=== PATIENT | female | born 1950 | race Two or more races ===

== ENCOUNTER 2016-11-24 11:11 | Emergency (ER) | payer OTHER ==
[2016-11-24 11:45] VITALS: RESP 18
--- NOTE | 2016-11-24 12:06 | CPEKG ---
Heart Rate: 89 RR Interval: 674 P-R Interval: 196 QRSD Interval: 66 QT Interval: 372 QTC Interval: 453 P Quincy: 60 QRS Quincy: 62 T Wave Quincy: 55 EKG Severity - BORDERLINE ECG - EKG Impression: SINUS RHYTHM EKG Impression: BORDERLINE R WAVE PROGRESSION, ANTERIOR LEADS Electronically Signed By: Kumar Hernandes 24-Nov-2016 12:37:50
--- NOTE | 2016-11-24 12:22 | DX ---
PA and Lateral Chest November 24, 2016 Indication: Cough and congestion. Comparison: Two-view chest dated November 23, 2015. Findings: Minimal bibasilar reticular abnormality and peribronchial thickening is worse since one ye ar prior. No airspace consolidation, edema or effusion. Heart size is normal. Surgical clips in the r ight upper quadrant are unchanged. Impression: Mild airways disease. No pneumonia.
--- NOTE | 2016-11-24 12:34 | UCPHY ---
H & P Patient Type: Established Chief Complaint Nursing Narrative: Pt. states bilat lower extremitiy/ankle swelling had increased yesterday. Denies cp but states has had periods of SOB, cough-productive yellow/green intermittently x2 mo. c/o MELENDREZ and "hot feeling" Time Seen by Provider: 11/24/16 11:58 HPI/ROS: This patient presents with a chief complaint of ankle swelling which began yesterday and this morning she noticed bernie or orbital swelling which has since improved. She says the ankle swelling was much worse yesterday than it is today. This is not been a problem in the past. REVIEW OF SYSTEMS: Constitutional: No fever, no malaise Eyes: Some watering from the right eye otherwise negative ENT: Denies sore throat and congestion. Respiratory: Mild cough, mild shortness of breath Cardiac: No chest pain Gastrointestinal: Denies nausea, vomiting, diarrhea. Good appetite Genitourinary: Not addressed Musculoskeletal: Feeling somewhat achy, see above Skin: No rash Neurological: Headache Source: Patient, RN notes reviewed, Old records Exam Limitations: No limitations - Medical/Surgical History Hx Asthma: No Hx Chronic Respiratory Disease: No Hx Diabetes: No Hx Cardiac Disease: No Hx Renal Disease: No Hx Cirrhosis: No Hx Alcoholism: No Hx HIV/AIDS: No Hx Splenectomy or Spleen Trauma: No Other PMH: HTN. [id number] - Family History Significant Family History: No pertinent family hx - Social History Smoking Status: Former smoker - Physical Exam Exam: GENERAL: Well-appearing, well-nourished and in no acute distress. HEAD: Atraumatic, normocephalic. EYES: Pupils equal round and reactive to light, extraocular movements intact, sclera anicteric, there is some conjunctival injection ENT: nares patent, oropharynx clear without exudates. Moist mucous membranes. NECK: Normal range of motion, supple without lymphadenopathy or JVD. LUNGS: Breath sounds clear to auscultation bilaterally and equal. No wheezes rales or rhonchi. Breath sounds are somewhat distant HEART: Regular rate and rhythm without murmurs, rubs or gallops. ABDOMEN: Soft, nontender, No guarding, no rebound. No masses appreciated. EXTREMITIES: Normal range of motion, No clubbing or cyanosis. There is mild pitting edema in both lower extremities which is symmetric. Peripheral pulses are symmetric NEUROLOGICAL: Cranial nerves II through XII grossly intact. Normal speech, normal gait. PSYCH: Normal mood, normal affect. SKIN: Warm, dry, normal turgor, no visible rashes or lesions. Back: No CVA or other tenderness Constitutional: Initial Vital Signs Temperature (C) 37.0 C 11/24/16 11:36 Heart Rate 77 11/24/16 11:36 Respiratory Rate 18 11/24/16 11:36 Blood Pressure 142/72 H 11/24/16 11:36 O2 Sat (%) 80 L 11/24/16 11:36 O2 Delivery Mode Room Air Allergies/Adverse Reactions: Penicillins Allergy (Verified 11/24/16 11:35) Home Medications: Medication Instructions Recorded Premarin 10/29/14 Albuterol Hfa Anes Only 11/24/16 Diltiazem 11/24/16 Medical Decision Making - Diagnostics EKG Interpretation: An EKG shows a normal sinus rhythm with no suggestion of ischemia. Imaging: A chest x-ray shows some air trapping with flattened diaphragms which is slightly worse than shown a chest x-ray 1 year ago. There is no obvious pneumonia or cardiomegaly. ED Course/Re-evaluation: The patient was monitored throughout her stay in the department and her oxygen saturation remained slightly low at approximately 88%. She did not is experienced this symptomatic Consequently I felt comfortable sending her home for further outpatient evaluation by her PCP. Differential Diagnosis: The chest x-ray shows findings that are suggestive of COPD such as hyper expansion and flattened diaphragms. Additionally noted was that her hemoglobin and hematocrit have been persistently elevated since 2012 and this could be another finding related to COPD. I do not believe her extremity edema is related to congestive heart failure based on her laboratory studies an x-ray. In addition there is nothing to suggest renal failure or other serious causes of edema. - Data Points Laboratory Results: Laboratory Results 11/24/16 12:38 11/24/16 12:38 11/24/16 12:38 WBC 10.21 H 10^3/uL (3.80-9.50) RBC 5.62 H 10^6/uL (4.18-5.33) Hgb 16.9 H g/dL (12.6-16.3) Hct 51.7 H % (38.0-47.0) MCV 92.0 fL (81.5-99.8) MCH 30.1 pg (27.9-34.1) MCHC 32.7 g/dL (32.4-36.7) RDW 14.9 % (11.5-15.2) Plt Count 210 10^3/uL (150-400) MPV 9.7 fL (8.7-11.7) Neut % (Auto) 67.5 % (39.3-74.2) Lymph % (Auto) 21.7 % (15.0-45.0) Ingham % (Auto) 7.8 % (4.5-13.0) Eos % (Auto) 2.2 % (0.6-7.6) Baso % (Auto) 0.4 % (0.3-1.7) Nucleat RBC Rel Count 0.0 % (0.0-0.2) Absolute Neuts (auto) 6.89 H 10^3/uL (1.70-6.50) Absolute Lymphs (auto) 2.22 10^3/uL (1.00-3.00) Absolute Monos (auto) 0.80 10^3/uL (0.30-0.80) Absolute Eos (auto) 0.22 10^3/uL (0.03-0.40) Absolute Basos (auto) 0.04 10^3/uL (0.02-0.10) Absolute Nucleated RBC 0.00 10^3/uL (0-0.01) Immature Gran % 0.4 % (0.0-1.1) Immature Gran # 0.04 10^3/uL (0.00-0.10) Sodium 139 mEq/L (134-144) Potassium 4.1 mEq/L (3.5-5.2) Chloride 100 mEq/L (97-110) Carbon Dioxide 30 mEq/l (22-31) Anion Gap 9 mEq/L (8-16) BUN 6 L mg/dL (7-23) Creatinine 0.5 L mg/dL (0.6-1.0) Estimated GFR > 60 Glucose 98 mg/dL (70-100) Calcium 8.8 mg/dL (8.5-10.4) Total Bilirubin 1.8 H mg/dL (0.1-1.4) AST 25 IU/L (14-46) ALT 43 IU/L (9-52) Alkaline Phosphatase 83 IU/L (38-126) NT-Pro-B Natriuret Pep 494 H pg/mL (0-125) Total Protein 7.0 g/dL (6.3-8.2) Albumin 3.5 g/dL (3.5-5.0) Departure - Departure Disposition: Home, Routine, Self-Care Clinical Impression: Edema Qualifiers: Edema type: unspecified Qualifier Code: (R60.9) Edema, unspecified Condition: Good Instructions: Leg Edema (ED) Additional Instructions: At this time there is no indication at your lower extremity edema is related to any serious problem. I am concerned however that the x-rays of your chest show early signs of emphysema and for this reason you should follow-up with your primary care physician for further evaluation. If at any time you develop acute shortness of breath you should be seen right away. You should elevate your legs whenever possible. Referrals: Leonarda Ballesteros MD [Primary Care Provider] - As per Instructions - PQRS PQRS Measurement: Not applicable
[2016-11-24 12:44] LABS: % IMMATURE GRANULYOCYTES 0.4 % (0.0-1.1); ABSOLUTE IMMATURE GRANULOCYTES 0.04 10^3/uL (0.00-0.10); ADD DIFF? NO; ADD MORPH? NO; ADD SCAN? NO; ATYPICAL LYMPHOCYTE FLAG 10 (0-99); FRAGMENT RBC FLAG 0 (0-99); HEMATOCRIT 51.7 % (38.0-47.0); HEMOGLOBIN 16.9 g/dL (12.6-16.3); LEFT SHIFT FLG 0 (0-99); LIPEMIA HEMOLYSIS FLAG 80 (0-99); MEAN CELL HEMOGLOBIN 30.1 pg (27.9-34.1); MEAN CELL HEMOGLOBIN CONCENTR. 32.7 g/dL (32.4-36.7); MEAN PLATELET VOLUME 9.7 fL (8.7-11.7); PLATELET CLUMPS FLAG 0 (0-99); PLATELET COUNT 210 10^3/uL (150-400); RED BLOOD CELL COUNT 5.62 10^6/uL (4.18-5.33); RED CELL DISTRIBUTION WIDTH 14.9 % (11.5-15.2)
[2016-11-24 12:57] LABS: ALANINE AMINOTRANSFERASE 43 IU/L (9-52); ALBUMIN 3.5 g/dL (3.5-5.0); ALKALINE PHOSPHATASE 83 IU/L (38-126); ANION GAP 9 mEq/L (8-16); ASPARTATE AMINOTRANSFERASE 25 IU/L (14-46); BILIRUBIN,TOTAL 1.8 mg/dL (0.1-1.4); CALCIUM 8.8 mg/dL (8.5-10.4); CARBON DIOXIDE 30 mEq/l (22-31); CHLORIDE 100 mEq/L (97-110); CREATININE 0.5 mg/dL (0.6-1.0); GLOMERULAR FILTRATION RATE > 60; GLUCOSE 98 mg/dL (70-100); POTASSIUM 4.1 mEq/L (3.5-5.2); SODIUM 139 mEq/L (134-144)
[2016-11-24 13:40] VITALS: BP 137/70; PULSE 75; TEMP 98.6; O2SAT 88
== END 2016-11-24 13:40 | disposition home or self-care (01) ==
LOC: CED 11:11
DX: R60.9 Edema, unspecified (principal); R06.02 Shortness of breath; R05 Cough; Z87.891 Personal history of nicotine dependence
CPT/HCPCS: 71020; 93005; G0463; 80053-PO; 83880-PO; 85025-PO; 93010-PO; 99214-PO

== ENCOUNTER → 2017-05-15 | Outpatient (CLI) | payer OTHER | LOC: CIMAGING 08:14 | PROVIDERS: ATTEND Internal Medicine | DX: Z12.31 Encounter for screening mammogram for malignant neoplasm of breast (principal) | CPT/HCPCS: G0202 ==

== ENCOUNTER 2017-08-04 09:31 | Inpatient (IN) | payer OTHER ==
[2017-08-04] MEDS ORDERED: MAGNESIUM SULF 2 GM/WATER 50 ML IV ONE (09:44)
[2017-08-04] MEDS ORDERED: methylPREDNISolone SOD SUCC 125 MG/2 ML VIAL IVP ONE (09:44)
[2017-08-04] MEDS ORDERED: IPRATROPIUM/ALBUTEROL 3 ML DEYVIAL IH ONE (09:44)
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
--- NOTE | 2017-08-04 09:52 | CPEKG ---
Heart Rate: 95 RR Interval: 632 P-R Interval: 140 QRSD Interval: 74 QT Interval: 364 QTC Interval: 458 P Valier: 57 QRS Valier: 68 T Wave Valier: 40 EKG Severity - ABNORMAL ECG - EKG Impression: SINUS RHYTHM EKG Impression: SETH, CONSIDER BIATRIAL ABNORMALITIES EKG Impression: ABNRM R PROG, CONSIDER ASMI OR LEAD PLACEMENT Electronically Signed By: Ariadne Perez 04-Aug-2017 09:56:27
[2017-08-04 10:20] LABS: % IMMATURE GRANULYOCYTES 0.6 % (0.0-1.1); ABSOLUTE IMMATURE GRANULOCYTES 0.06 10^3/uL (0.00-0.10); ADD DIFF? NO; ADD MORPH? NO; ADD SCAN? NO; ATYPICAL LYMPHOCYTE FLAG 10 (0-99); FRAGMENT RBC FLAG 0 (0-99); HEMATOCRIT 53.8 % (38.0-47.0); HEMOGLOBIN 17.8 g/dL (12.6-16.3); LEFT SHIFT FLG 0 (0-99); LIPEMIA HEMOLYSIS FLAG 80 (0-99); MEAN CELL HEMOGLOBIN 30.4 pg (27.9-34.1); MEAN CELL HEMOGLOBIN CONCENTR. 33.1 g/dL (32.4-36.7); MEAN PLATELET VOLUME 9.9 fL (8.7-11.7); PLATELET CLUMPS FLAG 0 (0-99); PLATELET COUNT 182 10^3/uL (150-400); RED BLOOD CELL COUNT 5.85 10^6/uL (4.18-5.33); RED CELL DISTRIBUTION WIDTH 15.8 % (11.5-15.2)
[2017-08-04 10:31] LABS: INR 1.19 (0.83-1.16); PROTIME(PATIENT) 14.8 SEC (12.0-15.0)
[2017-08-04 10:32] LABS: APTT 29.9 SEC (23.0-38.0)
[2017-08-04 10:35] LABS: ANION GAP 11 mEq/L (8-16); CALCIUM 8.7 mg/dL (8.5-10.4); CARBON DIOXIDE 28 mEq/l (22-31); CHLORIDE 100 mEq/L (97-110); CREATININE 0.5 mg/dL (0.6-1.0); GLOMERULAR FILTRATION RATE > 60; GLUCOSE 104 mg/dL (70-100); POTASSIUM 4.6 mEq/L (3.5-5.2); SODIUM 139 mEq/L (134-144)
[2017-08-04] MEDS ORDERED: ALBUTEROL 3 ML DEYVIAL IH ONE (10:44)
[2017-08-04 10:45] LABS: TROPONIN I < 0.012 ng/mL (0.000-0.034)
[2017-08-04] MEDS ORDERED: ALBUTEROL 3 ML DEYVIAL IH PRN (15:17)
[2017-08-04] MEDS ORDERED: ONDANSETRON 4 MG/2 ML VIAL IVP PRN (15:17)
[2017-08-04] MEDS ORDERED: oxyCODONE IR 5 MG TAB PO PRN (15:17)
[2017-08-04] MEDS ORDERED: ZOLPIDEM TARTRATE 5 MG TAB PO PRN (15:17)
[2017-08-04] MEDS ORDERED: ONDANSETRON DISINTEGRATING 4 MG TAB PO PRN (15:17)
[2017-08-04] MEDS: methylPREDNISolone SOD SUCC 125 MG/2 ML VIAL IVP SCH ×2 (15:53→21:12)
[2017-08-04] MEDS: AZITHROMYCIN IV 500 MG in D5W 250 ML IV SCH (16:16)
[2017-08-04] MEDS: ACETAMINOPHEN 325 MG TAB PO PRN (17:52)
[2017-08-04] MEDS: IPRATROPIUM/ALBUTEROL 3 ML DEYVIAL IH SCH ×2 (18:09→21:10)
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
[2017-08-04] MEDS ORDERED: CANN-EASE 2 GM TUBE TP PRN (23:00)
[2017-08-05] MEDS: methylPREDNISolone SOD SUCC 125 MG/2 ML VIAL IVP SCH ×3 (04:50→15:41)
[2017-08-05] MEDS: IPRATROPIUM/ALBUTEROL 3 ML DEYVIAL IH SCH ×4 (06:12→21:07)
[2017-08-05 07:48] LABS: % IMMATURE GRANULYOCYTES 0.8 % (0.0-1.1); ABSOLUTE IMMATURE GRANULOCYTES 0.17 10^3/uL (0.00-0.10); ADD DIFF? NO; ADD MORPH? NO; ADD SCAN? NO; ATYPICAL LYMPHOCYTE FLAG 0 (0-99); FRAGMENT RBC FLAG 0 (0-99); HEMATOCRIT 52.1 % (38.0-47.0); LEFT SHIFT FLG 0 (0-99); LIPEMIA HEMOLYSIS FLAG 80 (0-99); MEAN CELL HEMOGLOBIN 30.4 pg (27.9-34.1); MEAN CELL HEMOGLOBIN CONCENTR. 32.6 g/dL (32.4-36.7); MEAN CELL VOLUME 93.2 fL (81.5-99.8); MEAN PLATELET VOLUME 10.3 fL (8.7-11.7); PLATELET CLUMPS FLAG 0 (0-99); PLATELET COUNT 177 10^3/uL (150-400); RED BLOOD CELL COUNT 5.59 10^6/uL (4.18-5.33); RED CELL DISTRIBUTION WIDTH 15.7 % (11.5-15.2)
[2017-08-05 08:01] LABS: ANION GAP 10 mEq/L (8-16); CALCIUM 8.7 mg/dL (8.5-10.4); CARBON DIOXIDE 28 mEq/l (22-31); CHLORIDE 97 mEq/L (97-110); CREATININE 0.6 mg/dL (0.6-1.0); GLOMERULAR FILTRATION RATE > 60; GLUCOSE 147 mg/dL (70-100); POTASSIUM 4.4 mEq/L (3.5-5.2); SODIUM 135 mEq/L (134-144)
[2017-08-05] MEDS: DILTIAZEM CD 180 MG CAP PO SCH (08:11)
[2017-08-05] MEDS: ACETAMINOPHEN 325 MG TAB PO PRN (08:11)
[2017-08-05] MEDS: ENOXAPARIN 40 MG/0.4 ML SYR SC SCH (08:11)
[2017-08-05] MEDS: AZITHROMYCIN IV 500 MG in D5W 250 ML IV SCH (08:12)
[2017-08-05] MEDS ORDERED: ALBUTEROL 60 PUFFS/8 GM MDI IH PRN (13:10)
[2017-08-05] MEDS ORDERED: guaiFENesin/CODEINE PHOS 10 ML UDCUP PO PRN (13:11)
[2017-08-05] MEDS ORDERED: BENZONATATE 100 MG CAP PO PRN (13:11)
[2017-08-05] MEDS ORDERED: CETIRIZINE 5 MG/5 ML UDL PO SCH (13:15)
[2017-08-05] MEDS ORDERED: ALBUTEROL 200 PUFFS/18 GM MDI IH PRN (13:16)
[2017-08-05] MEDS: CETIRIZINE 10 MG TAB PO SCH (13:55)
[2017-08-05] MEDS: guaiFENesin 600 MG TAB.ER PO SCH ×2 (13:55→19:58)
--- NOTE | 2017-08-05 14:14 | ASMTCMCOM ---
CM Note CM Note Notes: Pt admitted for SOB found to have undiagnosed COPD. Pt now on IV ABX and O2. It is unclear if pt will have DC needs besides home O2. C/M to follow. Date Signed: 08/05/2017 02:13 PM Electronically Signed By:Marylin Kulkarni LCSW
--- NOTE | 2017-08-05 17:19 | HOSPPROG ---
Hospitalist Progress Note Assessment/Plan: Assessment: 66-year-old female presents with acute COPD exacerbation complicated by acute hypoxic respiratory failure next Plan: 1. COPD exacerbation. Acute, new problem this provider, further workup indicated. Evidenced by diffuse expiratory wheezes and bronchial breath sounds with symptomatic shortness of breath and resultant hypoxia, most likely secondary to upper respiratory infection -get respiratory viral panel -given patient's poor R-wave progression on EKG, get echocardiogram to ensure no focal wall motion abnormalities -continue scheduled duo nebs, prednisone, azithromycin, day 2 of 5 -patient's symptoms remained clinically on resolved, and require an additional 24 hours of scheduled nebulizer treatments -add supportive care with Mucinex, guaifenesin / codeine, Tessalon Perles as needed, cetirizine -recommend outpatient pulmonary function tests and pulmonary referral once this acute episode has resolved 2. Acute hypoxic respiratory failure. Evidenced by SpO2 of 60% on presentation , with objective tachypnea respiratory rate of 28, symptomatic shortness of breath, labored breathing, all of which was secondary to acute COPD exacerbation , stabilized with supplemental oxygen -patient has been weaned to 3 L nasal cannula, she remains hypoxic on room air challenge with an SpO2 of 88%, placed back on supplemental oxygen and continue to treat -chest x-ray does not demonstrate any focal pneumonia, personally interpreted -EKG demonstrates normal sinus mechanism with poor R-wave progression but no ischemic changes, personally interpreted -D-dimer normal, troponin negative 3. Hypertension. Chronic, continue diltiazem Diet. Regular Prophylaxis. High risk patient, Lovenox for Code. Full Disposition. Anticipated discharge is 08/06/2017, pending clinical improvement of above Subjective: patient reports ongoing symptomatic shortness of breath with any level of physical activity Objective: Vital Signs Temp Pulse Resp BP Pulse Ox 36.6 C 86 18 133/65 H 90 L 08/05/17 15:33 08/05/17 15:33 08/05/17 15:33 08/05/17 15:33 08/05/17 15:33 Laboratory Results 08/05/17 07:17 08/05/17 07:17 08/04/17 08/05/17 08/06/17 05:59 05:59 05:59 Intake Total 495 680 Balance 495 680 PT 14.8 SEC (12.0-15.0) 08/04/17 10:10 INR 1.19 (0.83-1.16) H 08/04/17 10:10 - Pending Discharge Pending Discharge Within 24 Hours: Yes Pending Discharge Date: 08/06/17 Pending Discharge Time: 11:00 - Physical Exam Constitutional: appears nourished, not in pain, uncomfortable, No chronically ill appearing Cardiovascular: regular rate and rhythym, no murmur, rub, or gallop, No irregularly irregular, No edema Respiratory: reduced air movement ( on expiration bilaterally), expiratory wheeze, bronchial breath sounds, No inspiratory crackles Gastrointestinal: normoactive bowel sounds, soft, non-tender abdomen, no palpable masses Neurologic: AAOx3, sensation intact bilaterally, No weakness Psychiatric: interacting appropriately, not encephalopathic, thought process linear, anxious ICD10 Worksheet Patient Problems: Problems Problem Status Onset Dyspnea Acute Hypoxia Acute COPD exacerbation Acute
[2017-08-06 05:14] LABS: ABSOLUTE NRBC COUNT 0.02 10^3/uL (0-0.01); ADD DIFF? YES; ADD MORPH? NO; ADD SCAN? NO; ATYPICAL LYMPHOCYTE FLAG 0 (0-99); FRAGMENT RBC FLAG 0 (0-99); HEMATOCRIT 49.3 % (38.0-47.0); HEMOGLOBIN 16.1 g/dL (12.6-16.3); LEFT SHIFT FLG 10 (0-99); LIPEMIA HEMOLYSIS FLAG 80 (0-99); MEAN CELL HEMOGLOBIN 30.7 pg (27.9-34.1); MEAN CELL HEMOGLOBIN CONCENTR. 32.7 g/dL (32.4-36.7); MEAN CELL VOLUME 93.9 fL (81.5-99.8); MEAN PLATELET VOLUME 10.3 fL (8.7-11.7); NRBC-AUTO% 0.1 % (0.0-0.2); PLATELET CLUMPS FLAG 10 (0-99); PLATELET COUNT 201 10^3/uL (150-400); RED BLOOD CELL COUNT 5.25 10^6/uL (4.18-5.33); RED CELL DISTRIBUTION WIDTH 15.7 % (11.5-15.2)
[2017-08-06 05:24] LABS: ALANINE AMINOTRANSFERASE 33 IU/L (9-52); ALBUMIN 3.4 g/dL (3.5-5.0); ALKALINE PHOSPHATASE 81 IU/L (38-126); ANION GAP 9 mEq/L (8-16); ASPARTATE AMINOTRANSFERASE 24 IU/L (14-46); CALCIUM 8.6 mg/dL (8.5-10.4); CARBON DIOXIDE 28 mEq/l (22-31); CHLORIDE 95 mEq/L (97-110); CREATININE 0.8 mg/dL (0.6-1.0); GLOMERULAR FILTRATION RATE > 60; GLUCOSE 148 mg/dL (70-100); POTASSIUM 4.7 mEq/L (3.5-5.2); SODIUM 132 mEq/L (134-144); TOTAL PROTEIN 6.8 g/dL (6.3-8.2)
[2017-08-06] MEDS: IPRATROPIUM/ALBUTEROL 3 ML DEYVIAL IH SCH ×4 (05:54→21:50)
[2017-08-06] MEDS: ACETAMINOPHEN 325 MG TAB PO PRN (06:02)
[2017-08-06 07:38] LABS: PLATELET ESTIMATE ADEQUATE (ADEQ); POLYCHROMASIA 1+
--- NOTE | 2017-08-06 09:08 | ECHO ---
[id number] + + [address] : : [place] [address] : : [phone] + + Adult Echocardiographic Report + -------+ :Name: DESTINY RAMIREZ MStudy Date: 08/05/2017 01:27 PM BP: 132/61 mmH g : : Hospital Admission Number: [id number] Locati on: 354: :: 1950 Gender: Female Height: 62 in : :Age: 66 yrs Race: [facility] Weight: 150 lb : :Reason For Study: eval wal motion for inferior infarct : : BSA: 1.7 meter s2 : :History: eval wal motion for inferior infarct : + -------+ MMode/2D Measurements & Calculations IVSd: 0.95 cm RVDd: 2.4 cm FS: 37.5 % Ao root diam: LVPWd: 1.0 cm LVIDd: 3.5 cm EDV(Teich): 2.3 cm LVIDs: 2.2 cm 51.2 ml ESV(Teich): 16.1 ml EF(Teich): 68.6 % LVLd ap4: 7.5 cm SV(MOD-sp4): EDV(MOD-sp4): 55.0 ml 75.0 ml LVLs ap4: 5.8 cm ESV(MOD-sp4): 20.0 ml EF(MOD-sp4): 73.3 % Normal Measurement Values: + + :LVIDd (3.5-5.7cm) IVSd (0.6-1.1cm) LVPWd (0.6-1.1cm) Aortic Root (2.0-3.7cm)Left Atrium (1.5-4.0cm): :LV Vol(d) (76-115ml) LV Vol(s) (29-48ml) Ejec Fraction (50-65%)PV Dario (0.6- 1.2m/s) TV Dario (0.4-1.0m/s) : :MV E Dario (0.8-1.0m/s)MV A Dario (0.3-1.0m/s)LVOT Dario (0.7-1.2m/s) Asc Ao Dario ( 0.9-1.8m/s) : + + Doppler Measurements & Calculations MV E max dario: Ao V2 max: LV V1 max: PA V2 max: 111.3 cm/sec 192.2 cm/sec 114.1 cm/sec 81.7 cm/sec MV A max dario: Ao max PG: LV V1 max PG: PA max P.6 cm/sec 14.8 mmHg 5.2 mmHg 2.7 mmHg MV E/A: 0.92 MV dec time: 0.23 sec TR max dario: 298.0 cm/sec TR max P.5 mmHg RAP systole: 10.0 mmHg RVSP(TR): 45.5 mmHg Left Ventricle The left ventricle is normal in size and function. There is normal left ventricular wall thickness. Ejection Fraction = 65-70%. No regional wall motion abnormalities noted. Right Ventricle The right ventricle is normal in size and function. Atria The left atrial size is normal. Right atrial size is normal. Mitral Valve The mitral valve is normal in structure and function. There is no mitral valve stenosis. There is no mitral regurgitation noted. Tricuspid Valve The tricuspid valve is normal in structure and function. There is no tricuspid stenosis. There is trace to mild tricuspid regurgitation. Right ventricular systolic pressure is 46mmHg. There is Doppler evidence for mild to moderate pulmonary hypertension. Aortic Valve The aortic valve is trileaflet. There is no aortic stenosis. There is no aortic insufficiency. Pulmonic Valve The pulmonic valve is not well visualized. Great Vessels The aortic root is normal size. Pericardium/Pleural There is no pericardial effusion. Conclusion A two-dimensional transthoracic echocardiogram with M-mode and Doppler was performed. The left ventricle is normal in size and function. Ejection Fraction = 65-70%. There is trace to mild tricuspid regurgitation. Right ventricular systolic pressure is 46mmHg. There is Doppler evidence for mild to moderate pulmonary hypertension. Final Reading Physician: Haily Vigil signed on 08/06/2017 09:07 AM Ordering Physician: Rudolph Metz Performed By: Suzan Benitez
[2017-08-06] MEDS: AZITHROMYCIN IV 500 MG in D5W 250 ML IV SCH (09:29)
[2017-08-06] MEDS: ENOXAPARIN 40 MG/0.4 ML SYR SC SCH (09:29)
[2017-08-06] MEDS: guaiFENesin 600 MG TAB.ER PO SCH ×2 (09:29→19:56)
[2017-08-06] MEDS: predniSONE 20 MG TAB PO SCH (09:29)
[2017-08-06] MEDS: DILTIAZEM CD 180 MG CAP PO SCH (09:30)
[2017-08-06] MEDS: CETIRIZINE 10 MG TAB PO SCH (09:30)
--- NOTE | 2017-08-06 14:50 | PDHOMEO2F ---
Home Oxygen Face to Face Home Orders: I certify that a physician or a nurse practitioner or physician's assistant golf coach has had a [id number] encounter with this patient on the date of this order due to the diagnosis listed, which relates to the primary reason the patient requires home oxygen. Alternative treatments have been tried, or considered, and deemed ineffective. It is anticipated that supplemental oxygen will result in improvement with treatment. Home oxygen qualifying diagnosis: hypoxia, COPD exacerbation SpO2 on room air (%): 86 Frequency of home oxygen needed: continuous Home oxygen liters per minute: 2 Home oxygen delivery device: nasal cannula Concentrator: Yes E-tanks for mobility and back up: Yes If ordering portable O2, is the patient mobile in the home?: Yes I certify that, based on these findings, the home oxygen is medically necessary for this patient for the following length of time. Length of time home oxygen needed: 3 months (to be reassessed by PCP)
--- NOTE | 2017-08-06 15:30 | ASMTCMCOM ---
CM Note CM Note Notes: RN reports that patient is unsteady on her feet. need therapy to eval. Patient on IV ABX, needs O2 at home and nebulizer txs. Will need HC Services on discharge. Asked RN for therapy orders, Date Signed: 08/06/2017 03:30 PM Electronically Signed By:Debbi Askew LCSW
--- NOTE | 2017-08-06 18:40 | SOAPPROG ---
SOAP Progress Note Assessment/Plan: Assessment: 66-year-old female presents with acute COPD exacerbation complicated by acute hypoxic respiratory failure Plan: 1. COPD exacerbation. Acute, most likely secondary to upper respiratory infection, slow improvement -resp panel neg -echo with pulm HTN but OTW reassuring -continue scheduled duo nebs, prednisone, azithromycin, day 3 of 5 -recommend outpatient pulmonary function tests and pulmonary referral once this acute episode has resolved -encouraged ambulation today -likely DC in AM with nebs, home O2 if O2 need stable or improved 2. Acute hypoxic respiratory failure. -3 L nasal cannula, she remains hypoxic on room air challenge with an SpO2 of 86 %, placed back on supplemental oxygen and continue to treat -neg infiltrate on CXR -D-dimer normal, troponin negative -pulm HTN noted on echo- discussed referral to pulm as o/p 3. Hypertension. Chronic, stable -continue diltiazem -consider risk stratification testing as o/p as + Fhx CAD Diet. Regular Prophylaxis. High risk patient, Lovenox Code. Full PCP- Ling Disposition. Anticipated discharge is 08/07/2017, pending clinical improvement of above Subjective: Feeling OK, still SOB with activity but not worse, maybe a little better. No CP/ abd pain. Revwd echo and lab results with her. Objective: Vital Signs Temp Pulse Resp BP Pulse Ox 96.6 F L 81 16 140/67 H 92 08/06/17 16:00 08/06/17 16:00 08/06/17 16:00 08/06/17 16:00 08/06/17 16:00 Microbiology 08/05/17 15:49 Respiratory Panel (PCR) - Final Nasal, Sinus - Swab No Organism Detected Laboratory Results 08/06/17 04:21 08/06/17 04:21 08/05/17 08/06/17 08/07/17 11:59 11:59 11:59 Intake Total 875 450 Balance 875 450 PT 14.8 SEC (12.0-15.0) 08/04/17 10:10 INR 1.19 (0.83-1.16) H 08/04/17 10:10 - Pending Discharge Pending Discharge Within 24 Hours: Yes Pending Discharge Date: 08/07/17 Pending Discharge Time: 11:00 Physical Exam - Physical Exam General Appearance: WD/WN, alert, no apparent distress Respiratory: decreased breath sounds, wheezing (occ), No respiratory distress, No crackles, No rales, No rhonchi Cardiac/Chest: regular rate, rhythm, No edema Skin: warm/dry Neuro/Psych: alert, normal mood/affect ICD10 Worksheet Patient Problems: Problems Problem Status Onset COPD exacerbation Acute Dyspnea Acute Hypoxia Acute
[2017-08-06] MEDS ORDERED: LACTULOSE 20 GM/30 ML UDCUP PO PRN (18:50)
[2017-08-06] MEDS ORDERED: MAGNESIUM HYDROXIDE 30 ML UDCUP PO ONE (18:50)
[2017-08-06] MEDS ORDERED: POLYETHYLENE GLYCOL 3350 17 GM PKT PO PRN (18:50)
[2017-08-06] MEDS ORDERED: BISACODYL 10 MG SUPP PR PRN (18:50)
[2017-08-06] MEDS: SENNOSIDES/DOCUSATE SODIUM TAB PO SCH (19:58)
[2017-08-07 05:30] LABS: ANION GAP 8 mEq/L (8-16); CALCIUM 8.4 mg/dL (8.5-10.4); CARBON DIOXIDE 29 mEq/l (22-31); CHLORIDE 99 mEq/L (97-110); CREATININE 0.6 mg/dL (0.6-1.0); GLOMERULAR FILTRATION RATE > 60; GLUCOSE 101 mg/dL (70-100); POTASSIUM 4.9 mEq/L (3.5-5.2); SODIUM 136 mEq/L (134-144)
[2017-08-07 05:32] LABS: % IMMATURE GRANULYOCYTES 0.8 % (0.0-1.1); ABSOLUTE IMMATURE GRANULOCYTES 0.15 10^3/uL (0.00-0.10); ADD DIFF? NO; ADD MORPH? NO; ADD SCAN? NO; ATYPICAL LYMPHOCYTE FLAG 0 (0-99); FRAGMENT RBC FLAG 0 (0-99); HEMATOCRIT 49.5 % (38.0-47.0); HEMOGLOBIN 15.7 g/dL (12.6-16.3); LEFT SHIFT FLG 0 (0-99); LIPEMIA HEMOLYSIS FLAG 80 (0-99); MEAN CELL HEMOGLOBIN 30.1 pg (27.9-34.1); MEAN CELL HEMOGLOBIN CONCENTR. 31.7 g/dL (32.4-36.7); MEAN PLATELET VOLUME 10.3 fL (8.7-11.7); PLATELET CLUMPS FLAG 0 (0-99); PLATELET COUNT 207 10^3/uL (150-400); RED BLOOD CELL COUNT 5.21 10^6/uL (4.18-5.33); RED CELL DISTRIBUTION WIDTH 15.8 % (11.5-15.2)
[2017-08-07] MEDS: IPRATROPIUM/ALBUTEROL 3 ML DEYVIAL IH SCH ×2 (06:30→10:26)
[2017-08-07 08:54] VITALS: BP 133/78
[2017-08-07] MEDS ORDERED: AZITHROMYCIN 250 MG TAB PO SCH (09:00)
[2017-08-07] MEDS: ENOXAPARIN 40 MG/0.4 ML SYR SC SCH (09:22)
[2017-08-07] MEDS: guaiFENesin 600 MG TAB.ER PO SCH (09:22)
[2017-08-07] MEDS: SENNOSIDES/DOCUSATE SODIUM TAB PO SCH (09:23)
[2017-08-07] MEDS: CETIRIZINE 10 MG TAB PO SCH (09:23)
[2017-08-07] MEDS: DILTIAZEM CD 180 MG CAP PO SCH (09:23)
[2017-08-07] MEDS: predniSONE 20 MG TAB PO SCH (09:23)
[2017-08-07 10:44] VITALS: RESP 18
--- NOTE | 2017-08-07 11:37 | GDS ---
[f rep st] DISCHARGE SUMMARY SERVICE: [facility] Hospitalist. CONSULTATIONS: None. PROCEDURES: Chest x-ray. HISTORY OF PRESENT ILLNESS: Please see previously dictated note by Dr. Paez. ADMISSION DIAGNOSES: 1. Chronic obstructive pulmonary disease exacerbation. 2. Acute hypoxic respiratory failure. 3. Polycythemia. 4. Hypertension. DISCHARGE DIAGNOSES: 1. Chronic obstructive pulmonary disease exacerbation. 2. Acute hypoxic respiratory failure. 3. Polycythemia. 4. Hypertension. HOSPITAL COURSE BY PROBLEM: 1. Acute COPD exacerbation with acute hypoxic respiratory failure. She was started on steroids, neb ulized medication, and oxygen. Chest x-ray did not indicate any pneumonia or acute process. She did not have any symptoms suggesting an infectious cause. Her initial O2 saturations were in the 50s to 60s. She denied any previous diagnosis of COPD and has not been seen by a liquor clerk previously. She has a greater than [id number]-[id number] history and quit a year ago. She required up to 4 L of oxygen by nasal cannula. Symptomatically, she continued to slowly improve throughout her stay. At the time of discharge, she is still on 3 L nasal cannula and desaturates down to the upper 80s when on room a ir, which is significantly improved from when she was evaluated in the Emergency Department. She has remained afebrile throughout her stay. Laboratory evaluation showed an elevated white blood cell co unt consistent with steroid use, but was not elevated on arrival. She is going to be discharged home with nebulizers, nebulizer machine, home oxygen, nebulizer solution, and continued oral steroid at a high dose. I suspect this may need to be tapered, but will leave this decision to her outpatient [facility] care provider. Of note, she did have an echocardiogram for completeness, which was essentially normal, except for some noted pulmonary hypertension. I have discussed this result with her and rec ommended a Pulmonary Medicine consult as an outpatient. She was treated empirically with azithromyci n 500 mg and she will complete a full 5-day course. 2. Acute hypoxic respiratory failure. See above. Of note, she had a normal D-dimer and a negative troponin. 3. Hypertension. She was continued on home medication, diltiazem. Blood pressures were slightly el evated at admission, but then remained stable throughout the rest of her stay. She does express some concern about cardiovascular risk, given her hypertension and strong family history of heart disease . Have recommended that she discuss an outpatient cardiovascular risk stratification with her primar y care provider. 4. Polycythemia. She was initially noted to have a hemoglobin of 17.8 at admission, likely secondar y to untreated hypoxia. At discharge, her hemoglobin was 15.7. This can be followed as an outpatien t. DISCHARGE MEDICATIONS: DuoNeb, albuterol MDI, azithromycin 500 mg, Tessalon Perles, Zyrtec, Mucinex, prednisone 60 mg for 6 days. She can continue with estrogen and diltiazem. She has been discharged home with oxygen to wear at 2-3 L continuously until re-evaluation with her primary care provider. DISCHARGE INSTRUCTIONS: 1. She has been recommended to follow up with her primary care provider Dr. Leonarda Ballesteros within the n ext 2-3 days. 2. She should wear oxygen continuously at 2-3 L. 3. I also recommend that she follow up with Dr. Monzon or his partners at Pulmonary Medicine within the next few weeks to establish care. 4. In the meantime, if she has worsening shortness of breath, fever, chest pain, or other symptoms, she should return immediately to the Emergency Department for evaluation. /[id number]/MODL
[2017-08-07 11:40] VITALS: PULSE 93; TEMP 97.8; O2SAT 90
--- NOTE | 2017-08-07 15:59 | ASDISCHSUM ---
Discharge Information Plan Status:Home with No Needs Medically Cleared to Leave: Discharge Date:08/07/2017 03:18 PM CM D/C Disposition:Home, Routine, Self-Care ADT D/C Disposition:Home, Routine, Self-Care Projected Discharge Date:08/07/2017 03:18 PM Transportation at D/C: Discharge Delay Reason: Follow-Up Date:08/07/2017 03:18 PM Discharge Slot: Final Diagnosis: Placement Information Patient Contact Information Contact Name:JOSE Relationship:Daughter Address:[address] [facility] City:[facility] Phone: [facility]/Zip Code:[place] [address] Email: Financial Information Financial Class:Medicare Advantage Plans Primary Plan Desc:[facility] [employer] Primary Plan Number:[id number] Secondary Plan Desc: Secondary Plan Number: Assessment Information [facility] CM Progress Note CM Note CM Note Notes: Pt admitted for SOB found to have undiagnosed COPD. Pt now on IV ABX and O2. It is unclear if pt will have DC needs besides home O2. C/M to follow. Date Signed: 08/05/2017 02:13 PM Electronically Signed By:Marylin Kulkarni LCSW [facility] CM Progress Note CM Note CM Note Notes: RN reports that patient is unsteady on her feet. need therapy to eval. Patient on IV ABX, needs O2 at home and nebulizer txs. Will need HC Services on discharge. Asked RN for therapy orders, Date Signed: 08/06/2017 03:30 PM Electronically Signed By:Debbi Askew LCSW [facility] CM Progress Note CM Note CM Note Notes: Pt medically stable for d/c. PT clears pt for home and hospitalist Kylah reports pt does not need HHC RN. No CM d/c needs identified. Date Signed: 08/07/2017 03:59 PM Electronically Signed By:RENALDO Curiel Intervention Information Intervention Type:*IM-Signed Date of Service:08/07/2017 11:54 AM Patient Type:Inpatient Staff Member:Giovanna Georges Hours: Discipline: Severity: Comment:
== END 2017-08-07 15:18 | disposition home or self-care (01) | DRG 190 ==
LOC: CED 09:31 → CEDHOLD 11:02 → F3N 13:01
PROVIDERS: ADMIT Internal Medicine; ATTEND Family Medicine
DX: J44.1 Chronic obstructive pulmonary disease with (acute) exacerbation (principal); J96.01 Acute respiratory failure with hypoxia; D75.1 Secondary polycythemia; I10 Essential (primary) hypertension; Z87.891 Personal history of nicotine dependence
CPT/HCPCS: 71020-PO; 80048-PO; 83880-PO; 84484-PO; 85025-PO; 85378-PO; 85610-PO; 85730-PO; 96374; 97161-GP; G8978-GP-CI; G8979-GP-CI; G8980-GP-CI; J0456; J1650

== ENCOUNTER → 2018-08-13 | Outpatient (CLI) | payer OTHER | LOC: CIMAGING 08:10 | PROVIDERS: ATTEND Internal Medicine | DX: Z12.31 Encounter for screening mammogram for malignant neoplasm of breast (principal) ==